=== PATIENT | female | born 1940 | race Caucasian/White ===

== ENCOUNTER 2020-06-09 21:20 | Emergency (ER) | payer MEDICARE ==
[~2020-06-09] VITALS: Ht 162.6 cm; Wt 45.4 kg
--- NOTE | 2020-06-09 21:30 | NUR ---
Patient to ER bed 5 to gown for evaluation. Side rails up. Report given to HUGO.
[2020-06-09 21:35] VITALS: BP_SYST 140
--- NOTE | 2020-06-09 21:35 | NUR ---
JESSICA TO ASSUME CARE, PT CALM, ALERT, RESP UNLABORED, SKIN WARM AND DRY. CLEAR MENTATION AND SPEECH, DENIES PAIN , NO DEFORMITY, DENIES PAIN BUT PAIN WITH SOME MOVEMENTS
--- NOTE | 2020-06-09 21:36 | NUR ---
ER Dr. AGUILAR at bedside examining patient.
[2020-06-09] MEDS ORDERED: HYDROcodone/ACETAMIN 5-325 MG TAB (NORCO/ VICODIN) PO ONE (21:45)
[2020-06-09 22:50] LABS: BASOPHILS % (AUTO) 0.4 % (0.0-2.0); EOSINOPHILS # (AUTO) 0.1 K/uL (0.0-0.4); EOSINOPHILS % (AUTO) 2.1 % (0.0-4.0); HEMATOCRIT 33.8 % (36-48); HEMOGLOBIN 10.5 g/dL (12.0-16.0); LYMPHOCYTES # (AUTO) 0.9 K/uL (1.0-5.5); LYMPHOCYTES % (AUTO) 21.5 % (20.5-51.5); MEAN CORPUSCULAR HEMOGLOBIN 29 pg (27-31); MEAN CORPUSCULAR HGB CONC 31 % (32-36); MEAN CORPUSCULAR VOLUME 94 fL (79.0-98.0); MONOCYTES # (AUTO) 0.3 K/uL (0.0-1.0); MONOCYTES % (AUTO) 6.3 % (1.7-9.3); NEUTROPHILS # (AUTO) 2.9 K/uL (1.8-7.7); NEUTROPHILS % (AUTO) 69.7 % (40.0-70.0); PLATELET COUNT (AUTO) 189 K/uL (130-430); RED BLOOD CELL COUNT(AUTO) 3.61 MIL/uL (4.2-6.2); RED CELL DISTRIBUTION WIDTH 12.8 % (9.0-15.0); WHITE BLOOD COUNT (AUTO) 4.1 K/uL (4.8-10.8)
[2020-06-09 22:53] LABS: ANION GAP 6 (5-15); CALCIUM 9.1 mg/dL (8.4-11.0); CHLORIDE 106 mmol/L (98-107); CREATININE 0.35 mg/dL (0.55-1.30); GLUCOSE 93 mg/dL (70-99); POTASSIUM 4.2 mmol/L (3.5-5.1); SODIUM SERUM 144 mmol/L (136-145); UREA NITROGEN, BLOOD 9 mg/dL (8-21)
--- NOTE | 2020-06-09 23:26 | NUR ---
ASSUMED CARE OF PT. PT RESTING QUIETLY IN NO DISTRESS AWAITING DISPOSITION.
--- NOTE | 2020-06-10 00:05 | NUR ---
Patient given written and verbal discharge instructions and verbalizes understanding. DR. LAUREN TOWNSEND MD discussed with patient the results and treatment provided. Patient in stable condition. ID arm band removed. IV catheter removed intact and dressing applied, no active bleeding.Patient educated on pain management and to follow up with PMD. Pain Scale 0/10. Opportunity for questions provided and answered.
[2020-06-10 00:07] VITALS: BP_SYST 138
--- NOTE | 2020-06-10 01:49 | NUR ---
TRANSPORT HERE FROM [facility] TO TAKE PT HOME.
== END 2020-06-10 01:49 | disposition home or self-care (01) ==
LOC: SED 21:20
DX: S00.83XA Contusion of other part of head, initial encounter (principal); M25.552 Pain in left hip; F03.90 Unspecified dementia, unspecified severity, without behavioral disturbance, psychotic disturbance, mood disturbance, and anxiety; W01.0XXA Fall on same level from slipping, tripping and stumbling without subsequent striking against object, initial encounter; Y93.89 Activity, other specified; Y92.89 Other specified places as the place of occurrence of the external cause; Y99.8 Other external cause status
CPT/HCPCS: 36415; 70450-TC; 72125-TC; 72170-TC; 73502; 80048; 85025; 93005; 99285